=== PATIENT | female | born 1975 | race African-American/Black ===

== ENCOUNTER 2018-02-14 18:22 | Emergency (ER) | payer MEDICAID ==
[~2018-02-14] VITALS: Ht 162.6 cm; Wt 108.0 kg
[2018-02-14 18:27] VITALS: BP 123/88
--- NOTE | 2018-02-14 19:32 | NUR ---
PATIENT PRESENTS TO ED WITH LEFT BIG TOE LACERATION X1 HOUR. PATIENT STATES SHE WAS AT THE [employer] [facility] AND DROPPED A CAN OF BEANS ON HER TOE. PATIENT STATES PAIN LEVEL 8/10 AT THIS TIME THROBBING, NON RADIATING. NO REDNESS OR SWELLING NOTED AT THIS TIME, NO BLEEDING NOTED, DRESSING CLEAN DRY AND INTACT. ER MD MADE AWARE OF PATIENT STATUS. NO DISTRESS NOTED AT THIS TIME. WILL CONTINUE TO MONITOR.
[2018-02-14] MEDS ORDERED: IBUPROFEN 800 MG TAB PO ONE (20:15)
[2018-02-14 20:40] VITALS: BP 123/88
--- NOTE | 2018-02-14 20:40 | NUR ---
Patient discharged with v/s stable. Written and verbal after care instructions given and explained. Patient alert, oriented and verbalized understanding of instructions. Wheel Chair Assisted with to car. All questions addressed prior to discharge. ID band removed. Patient advised to follow up with PMD. Rx of MOTRIN given. Patient educated on indication of medication including possible reaction and side effects. Opportunity to ask questions provided and answered.
== END 2018-02-14 20:59 | disposition home or self-care (01) ==
LOC: MED 18:22
DX: S92.425A Nondisplaced fracture of distal phalanx of left great toe, initial encounter for closed fracture (principal); S91.112A Laceration without foreign body of left great toe without damage to nail, initial encounter; E11.9 Type 2 diabetes mellitus without complications; I10 Essential (primary) hypertension; W20.8XXA Other cause of strike by thrown, projected or falling object, initial encounter; Y93.89 Activity, other specified; Y92.89 Other specified places as the place of occurrence of the external cause; Y99.8 Other external cause status
CPT/HCPCS: 12001; 73660; 82948; 90471; 90715; 99284

== ENCOUNTER 2018-02-18 16:11 | Emergency (ER) | payer MEDICAID ==
[~2018-02-18] VITALS: Ht 162.6 cm; Wt 104.3 kg
--- NOTE | 2018-02-18 16:30 | NUR ---
PT AMBULATES TO BED 11
[2018-02-18 16:37] VITALS: BP 143/83
--- NOTE | 2018-02-18 16:50 | NUR ---
PATIENT PRESENTS TO ED WITH COMPLAINTS OF RASH AND ITCHING X 1 DAY. PATIENT STAES SHE DOES NOT REMEBER EATING ANYTHING NEW OR UNUSUAL BUT SAME REACTION HAPPENED WHEN SHE HAD CRAWFISH 3 YEARS AGO. DENIES N/V/D; SKIN IS PINK/WARM/DRY; AAOX4 WITH EVEN AND STEADY GAIT; LUNGS CLEAR BL; HR EVEN AND REGULAR; PT DENIES ANY FEVER, CP, SOB, OR COUGH AT THIS TIME; PATIENT STATES PAIN OF 0/10 AT THIS TIME; VSS; PATIENT POSITIONED FOR COMFORT; HOB ELEVATED; BEDRAILS UP X1; BED DOWN. ER MD MADE AWARE OF PT STATUS.
[2018-02-18] MEDS ORDERED: DEXAMETHASONE 10 MG/ML VIAL IM ONE (17:35)
[2018-02-18] MEDS ORDERED: diphenhydrAMINE 50 MG/ML VIAL IM ONE (17:35)
[2018-02-18 18:52] VITALS: BP 136/79
--- NOTE | 2018-02-18 18:53 | NUR ---
Patient discharged with v/s stable. Written and verbal after care instructions given and explained. Patient alert, oriented and verbalized understanding of instructions. Ambulatory with steady gait. All questions addressed prior to discharge. ID band removed. Patient advised to follow up with PMD. Rx of PREDNISON, BENADRYL given. Patient educated on indication of medication including possible reaction and side effects. Opportunity to ask questions provided and answered.
== END 2018-02-18 18:53 | disposition home or self-care (01) ==
LOC: MED 16:11
DX: L50.0 Allergic urticaria (principal); I10 Essential (primary) hypertension; E11.9 Type 2 diabetes mellitus without complications
CPT/HCPCS: 82948; 96372; 99284; J1100; J1200